=== PATIENT | female | born 1980 | race Caucasian/White ===

== ENCOUNTER 2018-04-11 15:42 | Inpatient (IN) | payer OTHER ==
[~2018-04-11] VITALS: Ht 170.2 cm; Wt 179.0 kg
[2018-04-11 15:53] VITALS: Ht 170.2 cm; Wt 179.0 kg
[2018-04-11 17:00] LABS: BASOPHIL % 0.2 % (0-2)
[2018-04-11 17:02] LABS: PLATELET COUNT 403 x10^3mcL (130-400); RED CELL DISTRIBUTION WIDTH 23.2 % (11.5-14.5)
[2018-04-11 17:11] LABS: CALCIUM 8.3 mg/dL (8.5-10.1); CARBON DIOXIDE 26.6 mmol/L (21-32); CHLORIDE SERUM 103 mmol/L (98-107); CREATININE SERUM 0.7 mg/dL (0.6-1.0); GFR1 > 60 mL/min; GLUCOSE SERUM 92 mg/dL (74-106); POTASSIUM SERUM 3.6 mmol/L (3.5-5.1); SODIUM SERUM 138 mmol/L (136-145)
[2018-04-11 17:15] LABS: ALKALINE PHOSPHATASE 59 U/L (46-116); AMYLASE 36 U/L (25-115); AST/SGOT 11 U/L (15-37); BILIRUBIN TOTAL 0.34 mg/dL (0.20-1.00); LIPASE 120 IU/L (73-393)
[2018-04-11 17:22] LABS: rbc morphology (normal/abnorm) ABNORMAL (NORMAL); tear drop cell (dacryocyte) 1+
[2018-04-11 17:23] LABS: ovalocyte/elliptocyte 1+
[2018-04-11 17:27] LABS: T4(THYROXINE) 6.9 ug/dL (4.7-13.3)
[2018-04-11 17:40] LABS: ALT/SGPT 12 U/L (14-59)
[2018-04-11 17:59] LABS: AMPHETAMINE QUAL UR NONE DETECTED (See below)
[2018-04-11] MEDS ORDERED: EPZICOM1 TAB (18:00)
[2018-04-11 19:45] LABS: PHOSPHOROUS 2.7 mg/dL (2.5-4.9)
[2018-04-11 19:48] LABS: CHOLESTEROL/HDL RATIO 6.6
[2018-04-11 20:35] LABS: microscopic required? NO
[2018-04-11 20:38] LABS: urine erythrocyte NEGATIVE (NEGATIVE)
[2018-04-11 20:39] LABS: RED BLOOD CELLS 2.3 M/mm3 (4.10-5.10)
[2018-04-11 20:42] LABS: TOTAL IRON BINDING CAPACITY 347 ug/dL (250-450)
[2018-04-11 20:45] LABS: IRON 11 ug/dL (50-170)
[2018-04-11 21:18] VITALS: BP 113/50
[2018-04-11 22:20] VITALS: BP 126/45
[2018-04-11 23:05] VITALS: BP 135/65
[2018-04-12] VITALS (11 sets, daily range): BP systolic 113–148; BP diastolic 39–77
[2018-04-12 06:17] LABS: CALCIUM 8.2 mg/dL (8.5-10.1); CARBON DIOXIDE 25.8 mmol/L (21-32); CHLORIDE SERUM 105 mmol/L (98-107); CREATININE SERUM 0.8 mg/dL (0.6-1.0); GFR1 > 60 mL/min; GLUCOSE SERUM 88 mg/dL (74-106); MAGNESIUM 2.2 mg/dL (1.8-2.4); PHOSPHOROUS 3.5 mg/dL (2.5-4.9); POTASSIUM SERUM 3.6 mmol/L (3.5-5.1); SODIUM SERUM 138 mmol/L (136-145)
[2018-04-12 08:05] LABS: PLATELET COUNT 324 x10^3mcL (130-400)
[2018-04-12 08:08] LABS: RED CELL DISTRIBUTION WIDTH 27.2 % (11.5-14.5)
[2018-04-12 09:48] LABS: TOTAL IRON BINDING CAPACITY 341 ug/dL (250-450)
[2018-04-12 09:51] LABS: RED BLOOD CELLS 2.56 M/mm3 (4.10-5.10)
[2018-04-12 10:13] LABS: IRON 10 ug/dL (50-170)
[2018-04-12 10:14] LABS: burr cell (echinocyte) 1+; ovalocyte/elliptocyte 1+; schistocyte (helmet cell) 1+; tear drop cell (dacryocyte) 1+
[2018-04-12 10:15] LABS: rbc morphology (normal/abnorm) ABNORMAL (NORMAL)
[2018-04-12 14:23] LABS: PLATELET COUNT 393 x10^3mcL (130-400)
[2018-04-12 14:25] LABS: RED CELL DISTRIBUTION WIDTH 27.5 % (11.5-14.5)
[2018-04-12 14:47] LABS: BAND NEUTROPHIL 4 % (0-10); MONOCYTE 5 % (0-7); SEGMENTED NEUTROPHILS 58 % (37-75)
[2018-04-12 14:49] LABS: rbc morphology (normal/abnorm) ABNORMAL (NORMAL)
[2018-04-12 14:50] LABS: ovalocyte/elliptocyte 1+
[2018-04-12 14:51] LABS: tear drop cell (dacryocyte) 1+
[2018-04-12 14:52] LABS: PLATELET MORPHOLOGY FEW LARGE PLATELETS
[2018-04-13] VITALS (9 sets, daily range): BP systolic 104–153; BP diastolic 38–87
[2018-04-13 06:40] LABS: BASOPHIL % 0.4 % (0-2); PLATELET COUNT 351 x10^3mcL (130-400)
[2018-04-13 06:45] LABS: RED CELL DISTRIBUTION WIDTH 29.1 % (11.5-14.5)
[2018-04-13 06:49] LABS: rbc morphology (normal/abnorm) NORMAL (NORMAL)
[2018-04-13 06:50] LABS: ovalocyte/elliptocyte 1+; tear drop cell (dacryocyte) 1+
[2018-04-14 05:52] VITALS: BP 128/68
[2018-04-14 06:11] LABS: CALCIUM 8.3 mg/dL (8.5-10.1); CHLORIDE SERUM 110 mmol/L (98-107); CREATININE SERUM 0.7 mg/dL (0.6-1.0); GFR1 > 60 mL/min; GLUCOSE SERUM 91 mg/dL (74-106); MAGNESIUM 2.3 mg/dL (1.8-2.4); PHOSPHOROUS 3.8 mg/dL (2.5-4.9); POTASSIUM SERUM 3.7 mmol/L (3.5-5.1); SODIUM SERUM 145 mmol/L (136-145)
[2018-04-14 06:16] LABS: BASOPHIL % 0.4 % (0-2); PLATELET COUNT 359 x10^3mcL (130-400)
[2018-04-14 06:50] LABS: RED CELL DISTRIBUTION WIDTH 29.6 % (11.5-14.5)
[2018-04-14 08:36] VITALS: BP 123/76
[2018-04-14 11:14] LABS: rbc morphology (normal/abnorm) ABNORMAL (NORMAL)
[2018-04-14 11:16] VITALS: BP 125/51
[2018-04-14 12:38] VITALS: BP 152/79
[2018-04-14 16:25] VITALS: BP 130/66
[2018-04-14 20:40] VITALS: BP 131/68
[2018-04-15 05:19] VITALS: BP 122/63
[2018-04-15 05:21] VITALS: BP 116/50
[2018-04-15 07:08] LABS: BASOPHIL % 0.3 % (0-2); PLATELET COUNT 378 x10^3mcL (130-400)
[2018-04-15 07:41] LABS: RED CELL DISTRIBUTION WIDTH 30.1 % (11.5-14.5)
[2018-04-15 08:26] LABS: CALCIUM 8.3 mg/dL (8.5-10.1); CARBON DIOXIDE 25.7 mmol/L (21-32); CHLORIDE SERUM 108 mmol/L (98-107); CREATININE SERUM 0.7 mg/dL (0.6-1.0); GFR1 > 60 mL/min; GLUCOSE SERUM 81 mg/dL (74-106); MAGNESIUM 2.1 mg/dL (1.8-2.4); PHOSPHOROUS 3.2 mg/dL (2.5-4.9); POTASSIUM SERUM 3.8 mmol/L (3.5-5.1); SODIUM SERUM 144 mmol/L (136-145)
[2018-04-15 09:29] VITALS: BP 122/48
[2018-04-15 12:32] LABS: rbc morphology (normal/abnorm) ABNORMAL (NORMAL)
[2018-04-15 13:39] VITALS: BP 107/47
[2018-04-15 16:53] VITALS: BP 118/70
[2018-04-15 22:04] VITALS: BP 120/82
[2018-04-16 05:09] VITALS: BP 122/64
[2018-04-16 09:54] VITALS: BP 128/57
[2018-04-16 11:08] LABS: BASOPHIL % 0.3 % (0-2)
[2018-04-16 11:10] LABS: PLATELET COUNT 428 x10^3mcL (130-400); RED CELL DISTRIBUTION WIDTH 31.9 % (11.5-14.5)
[2018-04-16 11:14] LABS: rbc morphology (normal/abnorm) ABNORMAL (NORMAL)
[2018-04-16 13:12] VITALS: BP 133/76
[2018-04-16 17:52] VITALS: BP 114/51
[2018-04-16 21:21] VITALS: BP 123/57
[2018-04-17 05:23] VITALS: BP 120/58
[2018-04-17 06:21] LABS: BASOPHIL % 0.4 % (0-2); PLATELET COUNT 397 x10^3mcL (130-400)
[2018-04-17 06:30] LABS: RED CELL DISTRIBUTION WIDTH 32.7 % (11.5-14.5)
[2018-04-17 06:33] LABS: CALCIUM 8.4 mg/dL (8.5-10.1); CHLORIDE SERUM 103 mmol/L (98-107); CREATININE SERUM 0.8 mg/dL (0.6-1.0); GFR1 > 60 mL/min; GLUCOSE SERUM 89 mg/dL (74-106); MAGNESIUM 2.2 mg/dL (1.8-2.4); PHOSPHOROUS 3.9 mg/dL (2.5-4.9); POTASSIUM SERUM 3.2 mmol/L (3.5-5.1); SODIUM SERUM 137 mmol/L (136-145)
[2018-04-17 10:11] VITALS: BP 122/60
[2018-04-17] MEDS ORDERED: LAC30L PO (10:44)
[2018-04-17] MEDS ORDERED: FLA500 PO (10:44)
[2018-04-17] MEDS ORDERED: AMITIZA24 MC1 PO (10:45)
[2018-04-17] MEDS ORDERED: MINO PO (10:46)
[2018-04-17] MEDS ORDERED: FER300 PO (10:47)
[2018-04-17] MEDS ORDERED: PRI20 PO (11:07)
[2018-04-17 13:11] LABS: rbc morphology (normal/abnorm) ABNORMAL (NORMAL)
[2018-04-17 14:31] VITALS: BP 122/60
== END 2018-04-17 17:40 | disposition home or self-care (01) | DRG 348 ==
LOC: ED 15:42 → DU 18:40 → MU 18:40 → DU 20:50
PROVIDERS: Emergency Medicine; Internal Medicine Gastroenterology; Surgery; ADMIT Internal Medicine
PROC: 30233N1 Transfusion of Nonautologous Red Blood Cells into Peripheral Vein, Percutaneous Approach (ICD-10-PCS; 2018-04-12)
PROC: 0DB68ZX Excision of Stomach, Via Natural or Artificial Opening Endoscopic, Diagnostic (ICD-10-PCS; 2018-04-13 11:30)
PROC: 0DBP8ZZ Excision of Rectum, Via Natural or Artificial Opening Endoscopic (ICD-10-PCS; 2018-04-13 11:30)
PROC: 06BY0ZC Excision of Hemorrhoidal Plexus, Open Approach (ICD-10-PCS; principal; 2018-04-14 09:00)
DX: K64.4 Residual hemorrhoidal skin tags (principal); D62 Acute posthemorrhagic anemia; E44.0 Moderate protein-calorie malnutrition; Z68.44 Body mass index [BMI] 60.0-69.9, adult; K62.5 Hemorrhage of anus and rectum; K64.8 Other hemorrhoids; E66.01 Morbid (severe) obesity due to excess calories; E78.5 Hyperlipidemia, unspecified; D47.3 Essential (hemorrhagic) thrombocythemia; F12.10 Cannabis abuse, uncomplicated; D50.9 Iron deficiency anemia, unspecified; R74.0 Nonspecific elevation of levels of transaminase and lactic acid dehydrogenase [LDH]; K59.00 Constipation, unspecified; K62.1 Rectal polyp; K29.70 Gastritis, unspecified, without bleeding; K29.80 Duodenitis without bleeding; K20.9 Esophagitis, unspecified; Z88.1 Allergy status to other antibiotic agents; Z91.040 Latex allergy status; Z83.3 Family history of diabetes mellitus
CPT/HCPCS: 43235; 45378; 85378; G0480; J1170; J1200; J1610; J1885; J2250; J2270; J2310; J2405; J2916; J3010; J3490; J7030; J7040; J7050; P9016; Q0092; Q0163